=== PATIENT | male | born 1985 | race Caucasian/White ===

== ENCOUNTER 2024-05-06 16:34 | Emergency (ER) | payer OTHER ==
[~2024-05-06] VITALS: Ht 182.8 cm; Wt 111.1 kg
[~2024-05-06 16:34] MED LIST: AMOXICILLIN500 MG PO; VICODIN ES 7501 TAB PO
[2024-05-06 17:10] LABS: BASO % 0.4 % (0.0-1.0); EOS # 0.6 10*3/uL (0.0-0.4); EOS % 6.4 % (1.0-4.0); HEMATOCRIT 39.7 % (42.0-52.0); LYMPH # 1.6 10*3/uL (1.3-4.4); LYMPH % 16.7 % (27.0-41.0); MEAN CORPUSCULAR HGB 31.1 pg (27.0-31.0); MEAN CORPUSCULAR HGB CONC 33.5 g/dl (33.0-37.0); MEAN PLATELET VOLUME 9.4 fl (9.6-12.3); MONO # 1.2 10*3/uL (0.1-1.0); MONO % 12.9 % (3.0-9.0); NEUT # 6.1 10*3/uL (2.3-7.9); NEUT % 63.4 % (47.0-73.0); PLATELET COUNT AUTOMATED 240 10*3/uL (130-400); RED BLOOD COUNT 4.27 10*6/uL (4.50-5.90); RED CELL DISTRI WIDTH 12.6 % (0-14.5); WHITE BLOOD COUNT 9.6 10*3/uL (4.8-10.8)
[2024-05-06 17:29] LABS: BUN 8 mg/dl (9-23); CHLORIDE 109 mmol/L (98-107); POTASSIUM 4.1 mmol/L (3.4-5.1)
[2024-05-06 18:49] LABS: ACT PARTIAL THROMBO TIME 25.4 SECONDS (20.0-32.1)
== END 2024-05-06 19:22 | disposition home or self-care (01) ==
LOC: ED 16:34
PROVIDERS: Nurse Practitioner
DX: K92.1 Melena (principal); F17.290 Nicotine dependence, other tobacco product, uncomplicated